=== PATIENT | male | born 1960 | race Caucasian/White ===

== ENCOUNTER → 2018-06-17 | Outpatient (CLI) | payer MEDICAID ==
--- NOTE | 2018-06-17 16:16 | US ---
EXAMINATION TYPE: US carotid duplex BILAT DATE OF EXAM: 06/17/2018 COMPARISON: NONE CLINICAL HISTORY: Hypertension I10, H53.9 vision changes. 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 No h/o stroke EXAM MEASUREMENTS: RIGHT: Peak Systolic Velocity (PSV) cm/sec ----- Right CCA: 101.8 ----- Right ICA: 105.0 ----- Right ECA: 127.4 ICA/CCA ratio: 1.0 RIGHT: End Diastole cm/sec ----- Right CCA: 43.7 ----- Right ICA: 38.9 ----- Right ECA: 48.5 LEFT: Peak Systolic Velocity (PSV) cm/sec ----- Left CCA: 104.0 ----- Left ICA: 71.8 ----- Left ECA: 115.8 ICA/CCA ratio: 0.7 LEFT: End Diastole cm/sec ----- Left CCA: 35.4 ----- Left ICA: 37.8 ----- Left ECA: 47.9 VERTEBRALS (direction of flow): Right Vertebral: Antegrade Left Vertebral: Antegrade Rhythm: Normal Mild homogeneous plaque with no stenosis seen Grayscale, color Doppler, spectral Doppler imaging performed of the carotid arteries. Waveform analys is does not show significant stenosis of the proximal internal carotid arteries. IMPRESSION: No hemodynamic significant stenosis of the proximal internal carotid arteries bilaterall y by Doppler criteria, an indirect measurement of carotid stenosis \
--- NOTE | 2018-06-18 11:35 | ECHOF ---
Referral Reason:Hypertension I10, H53.9 vision changes MEASUREMENTS -------- HEIGHT: 180.3 cm WEIGHT: 81.6 kg BP: RVIDd: 2.5 cm (< 3.3) IVSd: 1.2 cm (0.6 - 1.1) LVIDd: 3.9 cm (3.9 - 5.3) LVPWd: 1.4 cm (0.6 - 1.1) IVSs: 1.3 cm LVIDs: 2.8 cm LVPWs: 1.8 cm LAESV Index (A-L): 19.58 ml/m Ao Diam: 3.2 cm (2.0 - 3.7) AV Cusp: 2.1 cm (1.5 - 2.6) LA Diam: 2.6 cm (2.7 - 3.8) MV EXCURSION: 13.059 mm (> 18.000) MV EF SLOPE: 82 mm/s (70 - 150) EPSS: 0.4 cm MV E Theo: 0.52 m/s MV DecT: 192 ms MV A Theo: 0.69 m/s MV E/A Ratio: 0.76 RAP: 5.00 mmHg RVSP: 15.17 mmHg FINDINGS -------- Sinus rhythm. This was a technically good study. The left ventricular size is normal. There is mild concentric left ventricular hypertrophy. Overa ll left ventricular systolic function is normal with, an EF between 55 - 60 %. The right ventricle is normal in size. Normal LA size by volume 22+/-6 ml/m2. The right atrial size is normal. Dropout seen in the interatrial septum. Cannot exclude shunt. The aortic valve is trileaflet, and appears structurally normal. No aortic stenosis or regurgitation. The mitral valve is normal. Mild mitral regurgitation is present. Mild tricuspid regurgitation present. Right ventricular systolic pressure is normal at < 35 mmHg. The right ventricular systolic pressure, as measured by Doppler, is 15.17mmHg. Trace/mild (physiologic) pulmonic regurgitation. The aortic root size is normal. Normal inferior vena cava with normal inspiratory collapse consistent with estimated right atrial pre ssure of 5 mmHg. There is no pericardial effusion. CONCLUSIONS -------- 1. Sinus rhythm. 2. This was a technically good study. 3. The left ventricular size is normal. 4. There is mild concentric left ventricular hypertrophy. 5. Overall left ventricular systolic function is normal with, an EF between 55 - 60 %. 6. Normal LA size by volume 22+/-6 ml/m2. 7. Dropout seen in the interatrial septum. Cannot exclude shunt. 8. The aortic valve is trileaflet, and appears structurally normal. No aortic stenosis or regurgitati on. 9. Mild mitral regurgitation is present. 10. Mild tricuspid regurgitation present. 11. Right ventricular systolic pressure is normal at < 35 mmHg. 12. Trace/mild (physiologic) pulmonic regurgitation. 13. The aortic root size is normal. 14. Normal inferior vena cava with normal inspiratory collapse consistent with estimated right atrial pressure of 5 mmHg. 15. There is no pericardial effusion. [employer] SUPERVISOR: Ankita Mares RDCS
== END | disposition home or self-care (01) ==
LOC: RADECHMAIN 14:36
PROVIDERS: ATTEND Family Medicine
DX: I08.8 Other rheumatic multiple valve diseases (principal); I11.9 Hypertensive heart disease without heart failure; H53.9 Unspecified visual disturbance
CPT/HCPCS: 93306; 93880

== ENCOUNTER → 2018-06-22 | Outpatient (CLI) | payer MEDICAID ==
--- NOTE | 2018-06-22 22:37 | MR ---
EXAMINATION TYPE: MR brain wo/w con DATE OF EXAM: 06/22/2018 COMPARISON: NONE HISTORY: Papilledema per order. Loss of vision for patient. TECHNIQUE: Multiplanar, multisequence images of the brain and brainstem is performed without and with IV contras t, utilizing 7.5 mL intravenous Gadavist . FINDINGS: Diffusion weighted images demonstrate no evidence of a recent infarct or other diffusion ab normality. There is no worrisome extra-axial fluid collection. There is ventricular and sulcal promi nence consistent with mild diffuse cerebral atrophy. There are scattered foci of T2 hyperintensity se en throughout the white matter bilaterally. I estimate approximately 50-60 scattered lesions. Midline structures demonstrate normal morphology. The craniocervical junction appears within normal limits. Post contrast images demonstrate no abnormal enhancement. The dural venous sinuses appear pa tent. The visualized sinuses are clear. The globes are intact bilaterally. Intraconal fat is preserve d. No suspicious enhancement is noted. Optic chiasm is not effaced IMPRESSION: Mild diffuse age-related cerebral atrophy and moderate to severe nonspecific white matter changes most likely on the basis of product of chronic small vessel ischemic change in patient of th is age. No suspicious enhancement is noted.
== END | disposition home or self-care (01) ==
LOC: RADMRIMAIN 18:44
PROVIDERS: ATTEND Ophthalmology
DX: G31.1 Senile degeneration of brain, not elsewhere classified (principal); R90.89 Other abnormal findings on diagnostic imaging of central nervous system
CPT/HCPCS: 70553; A9585

== ENCOUNTER → 2018-06-25 | Outpatient (CLI) | payer MEDICAID ==
--- NOTE | 2018-06-27 03:08 | MR ---
EXAMINATION TYPE: MR orbits wo/w con DATE OF EXAM: 06/25/2018 COMPARISON: None HISTORY: Papilledema TECHNIQUE: Multiplanar, multisequence images of the brain and brainstem is performed without and with IV contras t, utilizing 7.5 mL intravenous . FINDINGS: There is no evidence of retro-orbital mass. The globes are symmetric. There is no pathologic enhancem ent. There is no evidence of retro-orbital edema. Optic nerves are symmetric. There is no pathologic fluid collection. The extraocular muscles have normal size. The remainder of exam is unremarkable. IMPRESSION: Negative MR scan of the orbits. I do not see a cause for papilledema.
== END ==
LOC: RADMRIMAIN 19:43
PROVIDERS: ATTEND Psychiatry & Neurology Neurology
DX: H47.10 Unspecified papilledema (principal)
CPT/HCPCS: 70543; A9585

== ENCOUNTER → 2018-07-02 | Outpatient (CLI) | payer MEDICAID ==
[2018-07-02 12:08] LABS: HCT 51.4 % (39.0-53.0); HGB 16.6 gm/dL (13.0-17.5); MCH 31.7 pg (25.0-35.0); MCHC 32.2 g/dL (31.0-37.0); MCV 98.5 fL (80.0-100.0); Mean Platelet Volume 7.1; Platelet Count 324 k/uL (150-450); RBC 5.22 m/uL (4.30-5.90); RDW 13.3 % (11.5-15.5); WBC 14.4 k/uL (3.8-10.6)
[2018-07-02 12:56] LABS: Erythrocyte Sedimentation Rate 2 mm/hr (0-15)
== END ==
LOC: LABWHC1 10:47
PROVIDERS: ATTEND Ophthalmology
DX: H25.13 Age-related nuclear cataract, bilateral (principal); H47.11 Papilledema associated with increased intracranial pressure; H47.211 Primary optic atrophy, right eye
CPT/HCPCS: 36415; 82607; 85027; 85652; 86140

== ENCOUNTER 2022-01-28 11:03 | Day surgery (SDC) | payer BC, MEDICAID ==
[2022-01-27 13:23] VITALS: BMI 25.0
[~2022-01-28 11:03] MED LIST: LACTATED RINGERS 1,000 ML IV SCH; LIDOCAINE 1% (10MG/ML) FOR IV START INTRADERMA PRN; ONDANSETRON 4 MG/2 ML VIAL IVP PRN
[2022-01-28 11:35] VITALS: TEMP 98.3
[2022-01-28] MEDS ORDERED: PROPOFOL 10 MG/ML 20 ML VIAL IV ONE (11:59)
[2022-01-28] MEDS ORDERED: LIDOCAINE 2% INJ 20 MG/ML (2 ML VIAL) ONE (11:59)
--- NOTE | 2022-01-28 12:10 | P.GSHP ---
History of Present Illness H&P Date: 01/28/22 Chief Complaint: Colon cancer screening 61-year-old male here today for colonoscopy. He has not had 1 previously. No bowel complaints. No family history of colon cancer. Past Medical History Past Medical History: Hyperlipidemia, Hypertension, Thyroid Disorder Additional Past Medical History / Comment(s): blurred vision-LEGALLY BLIND History of Any Multi-Drug Resistant Organisms: None Reported Past Surgical History: No Surgical Hx Reported Additional Past Surgical History / Comment(s): oral surgery Past Anesthesia/Blood Transfusion Reactions: Motion Sickness Additional Past Anesthesia/Blood Transfusion Reaction / Comment(s): claustrophobia Smoking Status: Never smoker - Past Family History Mother Family Medical History: No Reported History Medications and Allergies Home Medications Medication Instructions Recorded Confirmed Type Atorvastatin [Lipitor] 10 mg PO HS 12/25/17 01/28/22 History Levothyroxine Sodium [Synthroid] 125 mcg PO DAILY 12/25/17 01/28/22 History Aspirin 81 mg PO DAILY 01/28/22 01/28/22 History Brimonidine Tartrate [Alphagan P 1 drops BOTH EYES DAILY 01/28/22 01/28/22 History 0.2% Ophth Soln] Escitalopram [Lexapro] 20 mg PO DAILY 01/28/22 01/28/22 History Multivitamins, Thera [Multivitamin 1 tab PO DAILY 01/28/22 01/28/22 History (formulary)] Pentoxifylline [TRENtal] 400 mg PO AC-BID 01/28/22 01/28/22 History Tamsulosin HCl [Flomax] 0.4 mg PO DAILY 01/28/22 01/28/22 History amLODIPine BESYLATE/BENAZEPRIL 1 tab PO DAILY 01/28/22 01/28/22 History [amLODIPine BESYLATE/BENAZEPRIL 5-20 mg] Allergies Allergy/AdvReac Type Severity Reaction Status Date / Time Penicillins Allergy Unknown Verified 01/28/22 11:38 Childhood Surgical - Exam Vital Signs Temp Pulse Resp BP Pulse Ox 98.3 F 81 16 141/76 97 01/28/22 11:33 01/28/22 11:33 01/28/22 11:33 01/28/22 11:33 01/28/22 11:33 Physical exam: General: Well-developed, well-nourished HEENT: Normocephalic, sclerae nonicteric Abdomen: Nontender, nondistended Extremities: No edema Neuro: Alert and oriented Assessment and Plan (1) Colon cancer screening Narrative/Plan: Will proceed with colonoscopy at this time. Current Visit: Yes Status: Acute Code(s): Z12.11 - ENCOUNTER FOR SCREENING FOR MALIGNANT NEOPLASM OF COLON SNOMED Code(s): 202689329
--- NOTE | 2022-01-28 12:25 | P.PCN ---
Date of Procedure: 01/28/22 Procedure(s) Performed: PREOPERATIVE DIAGNOSIS: Colon cancer screening POSTOPERATIVE DIAGNOSIS: Normal exam PROCEDURE: Colonoscopy ANESTHESIA: MAC SURGEON: Virgil Palencia M.D. SPECIMENS: None ENDOSCOPIC PROCEDURE: The patient was placed on the endoscopy table in the left decubitus position. The Olympus colonoscope was inserted into the anus and passed under direct visualization to the base of the cecum. The appendiceal orifice was visualized. From that point the scope was slowly withdrawn inspecti ng all surfaces carefully. There were no neoplastic inflammatory or polypoid lesions throughout the cecum, ascending, transverse, descending, sigmoid and rectum. There was no visible diverticulosis noted. Digital rectal examination was normal. The patient was taken to the recovery room in stable condition per anesthesia guidelines. RECOMMENDATIONS: Resume diet. Follow-up colonoscopy 10 years.
[2022-01-28 13:03] VITALS: BP 119/74; PULSE 60; RESP 15
== END 2022-01-28 13:16 | disposition home or self-care (01) ==
LOC: ORWHC2ENDO 11:03
PROVIDERS: ATTEND Surgery
DX: Z12.11 Encounter for screening for malignant neoplasm of colon (principal); E78.5 Hyperlipidemia, unspecified; I10 Essential (primary) hypertension; E07.9 Disorder of thyroid, unspecified; H54.8 Legal blindness, as defined in USA; F40.240 Claustrophobia; Z79.899 Other long term (current) drug therapy; Z79.890 Hormone replacement therapy; Z79.82 Long term (current) use of aspirin; Z88.0 Allergy status to penicillin; Z86.73 Personal history of transient ischemic attack (TIA), and cerebral infarction without residual deficits
CPT/HCPCS: 45378; J2704; J2001